=== PATIENT | male | born 1950 | race Caucasian/White ===

== ENCOUNTER 2017-08-02 07:00 | Outpatient (RCR) | payer MEDICARE, OTHER ==
[~2017-08-02 07:00] MED LIST: ASPIRIN325 MG PO; FOLIC ACID1 MG PO; GARLIC2000 MG PO; GINGER250 MG PO; LIVER-KIDNEY C1 EACH PO; LOSARTAN POTASS25 MG PO; MULTIVITAMIN PO; PEPCID20 MG; THIAMINE HCL100 MG PO
== END 2017-08-26 ==
LOC: PT 07:00
PROVIDERS: ATTEND Orthopaedic Surgery
DX: Z96.641 Presence of right artificial hip joint (principal); Z47.1 Aftercare following joint replacement surgery; M16.11 Unilateral primary osteoarthritis, right hip; M25.651 Stiffness of right hip, not elsewhere classified; M62.81 Muscle weakness (generalized)
CPT/HCPCS: 97110 ×2; G8979; G8980

== ENCOUNTER 2019-07-13 07:59 | Observation (INO) | payer MEDICARE, OTHER ==
[~2019-07-13] VITALS: Ht 175.3 cm; Wt 75.6 kg
--- OUTSIDE RECORDS SUMMARY | 2019-07-13 08:02 | XMS REPORT ---
Author Author [facility] Address Unknown Phone Unavailable Care Team Providers Care Unitizer Name Role Phone Unavailable Unavailable Payers Payer Name Policy Type Policy Number Effective Date Expiration Date Problems This patient has no known problems. Allergies, Adverse Reactions, Alerts Allergy Name Allergy Type Status Severity Reaction(s) Onset Date Inactive Date Treating Clinician Comments No Known Allergies DA Active U 2017-05-02 00:00:00 Medications This patient has no known medications.
[2019-07-13] MEDS ORDERED: ASPIRIN 81 MG CHEW TAB PO ONE (08:30)
[2019-07-13] MEDS ORDERED: ATORVASTATIN CA20 MG PO (08:35)
[2019-07-13] MEDS ORDERED: ANORO ELLIPTA1 EACH PO (08:35)
[2019-07-13] MEDS ORDERED: TADALAFIL5 MG PO (08:35)
[2019-07-13] MEDS ORDERED: OMEPRAZOLE40 MG PO (08:35)
[2019-07-13] MEDS ORDERED: ENALAPRIL MALEA20 MG PO (08:35)
[2019-07-13 08:38] LABS: BASOPHILS % 0.6 % (0.0-1.0); EOSINOPHILS # (AUTO) 0.1 (0.0-0.4); EOSINOPHILS % 1.7 % (0.0-6.0); HEMOGLOBIN 15.5 g/dL (14.0-18.0); LYMPHOCYTES # (AUTO) 1.3 (1.0-3.2); LYMPHOCYTES % 23.7 % (18.0-39.1); MEAN CORPUSCULAR HEMOGLOBIN 29.7 pg (28-32); MEAN CORPUSCULAR HGB CONC 33.7 g/dL (31-35); MEAN CORPUSCULAR VOLUME 88.1 fL (81-99); MONOCYTES # (AUTO) 0.4 (0.2-0.8); MONOCYTES % 7.4 % (4.4-11.3); NEUTROPHILS # (AUTO) 3.6 (2.1-6.9); NEUTROPHILS % 66.4 % (38.7-80.0); PLATELET COUNT 221 x10e3/uL (140-360); RED BLOOD COUNT 5.22 x10e6/uL (4.3-5.7); RED CELL DISTRIBUTION WIDTH 11.8 % (11.7-14.4)
[2019-07-13 08:48] LABS: INR 0.97; PROTHROMBIN TIME 13.4 seconds (11.9-14.5)
[2019-07-13 08:49] LABS: PARTIAL THROMBOPLASTIN TIME 27.3 seconds (23.8-35.5)
[2019-07-13 08:59] LABS: ALANINE AMINOTRANSFERASE 25 IU/L (0-55); ALBUMIN/GLOBULIN RATIO 1.7 (0.8-2.0); ALKALINE PHOSPHATASE 75 IU/L (40-150); ANION GAP 12.8 mmol/L (8-16); BLOOD UREA NITROGEN 11 mg/dL (7-26); BUN/CREATININE RATIO 9 (6-25); CALCIUM 9.8 mg/dL (8.4-10.2); CARBON DIOXIDE 28 mmol/L (22-29); CHLORIDE 102 mmol/L (98-107); CREATINE KINASE 110 IU/L (30-200); CREATININE, SERUM 1.18 mg/dL (0.72-1.25); EST GLOMERULAR FILTRATION RATE > 60 ML/MIN (60-); GLUCOSE 117 mg/dL (74-118); MAGNESIUM 1.8 MG/DL (1.3-2.1); POTASSIUM 3.8 mmol/L (3.5-5.1); SODIUM 139 mmol/L (136-145)
--- NOTE | 2019-07-13 09:04 | Diagnostic Imaging Report ---
Examination: Single AP view of the chest. COMPARISON: Report for CT angiography of the chest 03/26/2017. No images available. INDICATION: Chest pain DISCUSSION: Lungs are well-inflated and without consolidation, pleural effusion, or pneumothorax. Cardiomediastinal contour is notable for tortuosity of the thoracic aorta. Normal heart size. No overt pulmonary edema. No acute osseous abnormality. IMPRESSION: 1. No acute cardiopulmonary abnormalities. Signed by: Dr. Matthew Riggs M.D. on 07/13/2019 9:00 AM
[2019-07-13] MEDS ORDERED: ONDANSETRON HCL INJ 2MG/ML 2ML 2 MG/ML VIAL IV PRN (09:15)
[2019-07-13] MEDS: ASPIRIN 81 MG ENTERIC COATED PO SCH (09:22)
[2019-07-13] MEDS: FAMOTIDINE 20 MG/2 ML VIAL IV SCH ×2 (09:22→21:08)
[2019-07-13 09:39] LABS: BILIRUBIN,URINE NEGATIVE (NEGATIVE); CLARITY,URINE CLEAR (CLEAR); COLOR,URINE YELLOW (YELLOW); KETONES,URINE NEGATIVE (NEGATIVE); LEUKOCYTE ESTERASE ,URINE NEGATIVE (NEGATIVE); NITRITE,URINE NEGATIVE (NEGATIVE); PROTEIN,URINE DIPSTICK NEGATIVE (NEGATIVE); URINE UROBILINOGEN 0.2 mg/dL (0.2 - 1)
[2019-07-13 09:47] LABS: BACTERIA,URINE RARE /HPF; EPITHELIAL CELLS,URINE FEW /LPF; RBC,URINE 0-5 /HPF (0-5); WBC,URINE (MAN) 0-5 /HPF (0-5)
[2019-07-13 10:00] VITALS: BP 132/82
--- NOTE | 2019-07-13 10:00 | NUR ---
PATIENT ADMITTED FROM ER PER STRETCHER. ALERT AND VERBALLY RESPONSIVE. DENIED ANY PAIN AT THIS TIME. SKIN WARM AND DRY TO TOUCH, RESPIRATION EVEN AND UNLABORED, ABDOMEN SOFT AND NON DISTENDED. TELEMETRY B[address]. PATIENT ORIENTED TO SURROUNDINGS. BED IN LOWER POSITION, CALL LIGHT AT REACH, INSTRUCTED TO CALL FOR ASSISTANCE NEEDED.
[2019-07-13 11:35] VITALS: BP 117/69
[2019-07-13 14:55] LABS: CREATINE KINASE 91 IU/L (30-200)
--- NOTE | 2019-07-13 15:39 | NUR ---
PATIENT IN BED RESTING WITH NO S/S OF DISTRESS. CALL LIGHT AT REACH.
--- NOTE | 2019-07-13 15:42 | NUR ---
IN TO SEE PATIENT. DIET ADVANCED TO GI SOFT. Addendum: 07/13/19 at 1543 by Kat James RN WRONG PATIENT.
[2019-07-13 16:11] VITALS: BP 101/65
--- NOTE | 2019-07-13 19:45 | NUR ---
RECEIVED PT IN BED AOX3 .RESPIRATIONS ARE EVEN AND UNLABORED .DENIES PAIN /TELE SHOWS IST DEGREE BLOCK .CALL LIGHT WITH IN REACH CONTINUE TO MONITOR
[2019-07-13 20:00] VITALS: BP 101/60
[2019-07-13 20:11] LABS: CREATINE KINASE 81 IU/L (30-200)
[2019-07-13] MEDS ORDERED: MORPHINE SULFATE 2 MG/ML SYR 1ML IV PRN (21:15)
[2019-07-13 23:11] VITALS: BP 101/60
[2019-07-14] VITALS (7 sets, daily range): BP systolic 107–130; BP diastolic 59–82
[2019-07-14 02:32] LABS: CREATINE KINASE 78 IU/L (30-200)
[2019-07-14 05:46] LABS: BASOPHILS % 0.7 % (0.0-1.0); EOSINOPHILS # (AUTO) 0.1 (0.0-0.4); EOSINOPHILS % 2.3 % (0.0-6.0); HEMATOCRIT 44.5 % (38.2-49.6); HEMOGLOBIN 14.8 g/dL (14.0-18.0); LYMPHOCYTES # (AUTO) 1.4 (1.0-3.2); LYMPHOCYTES % 25.6 % (18.0-39.1); MEAN CORPUSCULAR HEMOGLOBIN 29.2 pg (28-32); MEAN CORPUSCULAR HGB CONC 33.3 g/dL (31-35); MEAN CORPUSCULAR VOLUME 87.8 fL (81-99); MONOCYTES # (AUTO) 0.5 (0.2-0.8); MONOCYTES % 8.4 % (4.4-11.3); NEUTROPHILS # (AUTO) 3.5 (2.1-6.9); PLATELET COUNT 185 x10e3/uL (140-360); RED BLOOD COUNT 5.07 x10e6/uL (4.3-5.7); RED CELL DISTRIBUTION WIDTH 11.9 % (11.7-14.4)
[2019-07-14 06:06] LABS: ALANINE AMINOTRANSFERASE 23 IU/L (0-55); ALBUMIN 3.5 g/dL (3.5-5.0); ALBUMIN/GLOBULIN RATIO 1.5 (0.8-2.0); ALKALINE PHOSPHATASE 66 IU/L (40-150); ANION GAP 10.1 mmol/L (8-16); BLOOD UREA NITROGEN 12 mg/dL (7-26); BUN/CREATININE RATIO 12 (6-25); CALCIUM 9.5 mg/dL (8.4-10.2); CARBON DIOXIDE 28 mmol/L (22-29); CHLORIDE 104 mmol/L (98-107); CHOL/HDL RATIO 3.4 (3.9-4.7); CHOLESTEROL 126 MD/DL (0-199); EST GLOMERULAR FILTRATION RATE > 60 ML/MIN (60-); GLUCOSE 94 mg/dL (74-118); HDL CHOLESTEROL 37 MG/DL (40-60); LDL CHOLESTEROL 74 MG/DL (60-130); POTASSIUM 4.1 mmol/L (3.5-5.1); SODIUM 138 mmol/L (136-145); TRIGLYCERIDES 76 MG/DL (0-149)
--- NOTE | 2019-07-14 06:22 | NUR ---
PT C/O CHEST PAIN CALLED DR LIMA AND GOT THE ORDER TO GIVE MORPHINE .GIVEN MORPHINE X1 .PT RESTING .PT NPO FOR STRESS TEST .CONTINUE TO MONITOR
--- NOTE | 2019-07-14 07:05 | NUR ---
BEDSIDE REPORT GIVEN TO THE ONCOMING NURSE
[2019-07-14] MEDS: FAMOTIDINE 20 MG/2 ML VIAL IV SCH (08:10)
[2019-07-14] MEDS ORDERED: REGADENOSON 0.4 MG/5 ML SYR IV ONE (08:24)
[2019-07-14] MEDS: ENALAPRIL MALEATE 10 MG TAB PO SCH (09:00)
[2019-07-14] MEDS: VILANTEROL TR PO SCH (09:00)
[2019-07-14] MEDS: UMECLIDINIUM BRM PO SCH (09:00)
[2019-07-14] MEDS: PANTOPRAZOLE SOD 40 MG TABEC PO SCH (09:00)
[2019-07-14] MEDS: Tadalafil 5 MG PO SCH (09:00)
--- NOTE | 2019-07-14 10:50 | NUR ---
patient off the unit for Stress test, stable
--- NOTE | 2019-07-14 12:30 | History and Physical ---
PRIMARY CARE PHYSICIAN: Dr. Ke Abernathy. WATERFRONT DIRECTOR: Dr. Troy Vasquez. CHIEF COMPLAINT: Chest pain. HISTORY OF PRESENT ILLNESS: The patient is a 69-year-old male, patient of Dr. Ke Abernathy. The patient came to the hospital with complaint of atypical chest pain. The patient is supposed to have a stress test later on with Dr. Vasquez. The patient is stating that the chest pain described as burning, located to the left epigastric area. There is no significant nausea or vomiting. No diaphoresis. The patient is stable. He is pending for a stress test today. PAST MEDICAL HISTORY: Hypertension, dyslipidemia, reflux, gastritis. Hiatal hernia. PAST SURGICAL HISTORY: Colonoscopy, upper endoscopy and hip surgery. Abdominal hernia repair. SOCIAL HISTORY: The patient does not smoke or use alcohol. No regular drugs. ALLERGIES: NO KNOWN ALLERGIES. HOME MEDICATIONS: List is reviewed. REVIEW OF SYSTEMS: Chest pain. No headaches. No nausea or vomiting. No radiating pain. PHYSICAL EXAMINATION: VITAL SIGNS: Temperature is 97, blood pressure 107/64, pulse rate 57, and respirations 18. GENERAL: The patient is not in acute distress. HEENT: Normocephalic and atraumatic. Pupils reactive. Anicteric. NECK: Supple grossly. PULMONARY: Clear. CARDIOVASCULAR: Regular rate and rhythm. ABDOMEN: Soft. Unremarkable. EXTREMITIES: No cyanosis or edema. NEUROLOGIC: No gross focal deficit. LABORATORY DATA: Sodium is 138, potassium 4.1, chloride 104, bicarb 28, BUN 12, creatinine 1.2, and glucose is 94. WBC is 5.6, hemoglobin 14.8, hematocrit 44.5, and platelets is 187. Chest x-ray otherwise unremarkable. IMPRESSION: Atypical chest pain. PLAN: Lexiscan stress test today. Once the stress is negative, the patient should be able to go home. He will resume his home medication. MD MACY Avendano/HENRIETTA /[id number]
--- NOTE | 2019-07-14 17:14 | NUR ---
Paged Dr Miller regarding Stress result, she stated she will call back with the result
--- NOTE | 2019-07-14 18:33 | Consultation ---
DATE OF CONSULTATION: 07/14/2019 Cardiology consultation REQUESTING PHYSICIAN: Ap Conley MD. REASON FOR CONSULTATION: Chest pain. HISTORY OF PRESENT ILLNESS: This is a 69-year-old male with history of hypertension, hyperlipidemia, who presents with complaints of chest pain. He reports he has been having chest pain for the last three or four days. He describes it as a burning sensation 4/10 in severity, lasting 45 minutes to 1 hour at a time when he lies down. Denies any shortness of breath, nausea, diaphoresis. Denies any edema, orthopnea or PND. REVIEW OF SYSTEMS: Negative except as per HPI. PAST MEDICAL HISTORY: 1. Hypertension. 2. Hyperlipidemia. PAST SURGICAL HISTORY: 1. Hernia repair. 2. Right hip replacement. 3. Toe surgery. ALLERGIES: PLEASE SEE EMR. MEDICATIONS: Please see medication list. SOCIAL HISTORY: Denies any tobacco or illicit drugs. He does drink approximately a six pack of beer a day. FAMILY HISTORY: Pertinent for father and brother with coronary artery disease as well as myocardial infarction. PHYSICAL EXAMINATION: VITAL SIGNS: Temperature 96.4 degrees, pulse is 57, respiratory rate 18, blood pressure 107/64, and oxygen saturation 98% on room air. GENERAL: Awake, alert, no acute distress. LUNGS: Clear to auscultation bilaterally. No wheezes or crackles. CARDIOVASCULAR: Normal rate, regular rhythm. No murmur. Normal S1, S2. ABDOMEN: Soft nontender. EXTREMITIES: No edema. NEUROLOGIC: Nonfocal exam. LABORATORY DATA: WBC 5.62, hemoglobin 14.8, hematocrit 44.5, platelets 185. Sodium 138, potassium 4.1, chloride 104, CO2 of 28, BUN 12, creatinine 1, LDL 74. TELEMETRY: Normal sinus rhythm. ELECTROCARDIOGRAM: EKG; normal sinus rhythm with sinus arrhythmia, T-wave abnormality, anterior ischemia. IMPRESSION: 1. Chest pain. 2. Hypertension. 3. Hyperlipidemia. 4. Abnormal EKG. RECOMMENDATIONS: The patient has ruled out for myocardial infarction with serial cardiac biomarkers. Obtain echo, nuclear stress test to evaluate for ischemia given his risk factors. Further recommendations pending test results. Thank you for this consult. We will continue to follow. Rossy Miller MD ABS/MODL /[id number]
--- NOTE | 2019-07-14 19:10 | NUR ---
Patient visited in room during nursing rounds. Patient alert and oriented x3. Ambulatory in room prn. Patient denies pain at this time. Awaiting on cardio (Dr. Miller) results from stress test. Call bruno within reach.
--- NOTE | 2019-07-14 19:15 | NUR ---
Received call from Dr. Miller. stated lexiscan stress test was negative and pt cleared from cardiac standpoint.
[2019-07-14] MEDS ORDERED: ATORVASTATIN 20 MG TAB PO SCH (21:00)
--- NOTE | 2019-07-14 21:00 | NUR ---
Informed patient that stress test result was negative. Pt wishes to go home tomorrow. Will attempt to call Dr. oCnley to notify.
--- NOTE | 2019-07-14 22:00 | NUR ---
Attempted to call Dr. Conley to report lexiscan stress test result but no answer. Awaiting on MD call back. Will pass on information to incoming dayshift RN.
--- NOTE | 2019-07-14 22:09 | Myoview Stress Test ---
DATE OF STUDY: 07/14/2019 09:09:00 Stress Test - Treadmill ONLY PROCEDURE TITLE: Rest/stress single isotope SPECT imaging pharmacologic stress and gated SPECT imaging. INDICATION: Chest pain. PROCEDURE IN DETAIL: Pharmacologic stress testing was performed with regadenoson per protocol. The heart rate was 60 beats per minute at rest and increased to 105 beats per minute during the regadenoson infusion. The rest blood pressure was 119/70 mmHg and increased to 130/77 mmHg, which is a normal response. The resting electrocardiogram demonstrated normal sinus rhythm. There were no ST-segment changes suggestive of myocardial ischemia. Myocardial perfusion imaging was performed at rest following injection of 11 mCi of tetrofosmin. At peak pharmacologic effect, the patient was at 32 mCi of tetrofosmin. Gated post-stress tomographic imaging was performed. FINDINGS: The overall quality of study is fair. Left ventricular cavity is normal size on the rest and stress studies. SPECT images demonstrate homogeneous tracer distribution throughout the myocardium. Gated SPECT imaging reveals normal myocardial thickening and wall motion. The left ventricular ejection fraction calculated to be 65%. IMPRESSION: Myocardial perfusion imaging is normal. Overall left ventricular systolic function was normal without regional wall motion abnormalities. Rossy Miller MD ABS/MODL /[id number]
[2019-07-15 00:42] VITALS: BP 121/62
[2019-07-15 05:20] VITALS: BP 128/70
[2019-07-15 07:12] VITALS: BP 164/80
[2019-07-15 08:51] VITALS: BP 164/80
[2019-07-15] MEDS: Tadalafil 5 MG PO SCH (09:00)
[2019-07-15] MEDS: UMECLIDINIUM BRM PO SCH (09:00)
[2019-07-15] MEDS: VILANTEROL TR PO SCH (09:00)
[2019-07-15] MEDS: ENALAPRIL MALEATE 10 MG TAB PO SCH (09:07)
[2019-07-15] MEDS: PANTOPRAZOLE SOD 40 MG TABEC PO SCH (09:07)
[2019-07-15] MEDS: ASPIRIN 81 MG ENTERIC COATED PO SCH (09:07)
[2019-07-15] MEDS ORDERED: MOBIC15 MG PO (10:27)
--- NOTE | 2019-07-15 11:06 | NUR ---
patient discharged home, Dr Conley and Dr Miller had rounds, prescription given, patient aware about his f/up appointments, IV canula removed with tip intact, no ss of infiltration, denies any pain, no distress noted, transported via wheelchair to [facility], he got his personnel car
--- NOTE | 2019-07-15 19:41 | Progress Note ---
DATE: 07/15/2019 SUBJECTIVE: The patient denies chest pain or shortness of breath. He complains of left neck pain. OBJECTIVE: VITAL SIGNS: Temperature 97.9 degrees, pulse 82, respiratory rate 18, blood 164/80, and oxygen saturation 100% on room air. GENERAL: Awake, alert, in no acute distress. LUNGS: Clear to auscultation bilaterally. No wheeze or crackles. CARDIOVASCULAR: Normal rate, regular rhythm. No murmur. Normal S1 and S2. ABDOMEN: Soft and nontender. EXTREMITIES: No edema. CARDIAC MEDICATIONS: 1. Enalapril 20 mg p.o. daily. 2. Aspirin 81 mg p.o. daily. 3. Atorvastatin 20 mg p.o. at bedtime. LABORATORY DATA: None today. TELEMETRY: Normal sinus rhythm. IMPRESSION: 1. Chest pain. 2. Hypertension. 3. Hyperlipidemia. 4. Abnormal EKG. RECOMMENDATIONS: The patient ruled out for myocardial infarction with serial cardiac biomarkers. Nuclear stress test without evidence of ischemia. No further cardiac evaluation is indicated at this time. Please have patient follow up with Dr. Vasquez in two weeks. Thank you for this consult. We will continue to follow. Rossy Miller MD ABS/MODL /[id number]
--- NOTE | 2019-07-16 01:52 | Discharge Summary ---
PRIMARY CARE PHYSICIAN: Ke Abernathy MD TRANSPORTATION ASSISTANT: Dr. Troy Vasquez. FINAL DIAGNOSES: 1. Atypical chest pain with negative EKG, negative cardiac enzyme and negative nuclear stress test. 2. Left-sided neck pain, most likely musculoskeletal pain. SUMMARY: The patient is a 69-year-old male with baseline hypertension, dyslipidemia. The patient came in with left-sided neck pain, chest pain. The patient was scheduled for outpatient stress test, but he was anxious; therefore, he came to the hospital. He was ruled out for any myocardial infarction and the patient subsequently had a nuclear stress test that was negative yesterday. He is concerned with his left-sided neck pain and musculoskeletal pain, most likely with palpation and range of motion. The patient will go home with Mobic 7.5 mg one 1 to 2 tablets each day as needed for pain. The patient to follow up with his family physician for management of his neck pain, most likely musculoskeletal pain on physical examination. MD MACY Avendano/HENRIETTA /[id number]
== END 2019-07-15 10:47 | disposition home or self-care (01) ==
LOC: ER 07:59 → ERHOLD 09:23 → MED/SURG3 09:55
PROVIDERS: ADMIT Internal Medicine; ATTEND Internal Medicine
DX: R07.2 Precordial pain (principal); M54.2 Cervicalgia; I10 Essential (primary) hypertension; E78.5 Hyperlipidemia, unspecified; K21.9 Gastro-esophageal reflux disease without esophagitis; Z82.49 Family history of ischemic heart disease and other diseases of the circulatory system; R94.31 Abnormal electrocardiogram [ECG] [EKG]
CPT/HCPCS: 36415 ×2; 71045; 78452; 80053 ×2; 80061; 81001; 82550 ×2; 82553 ×2; 83735; 83880; 84484 ×2; 85025 ×2; 85610; 85730; 93005; 93017; 99284; A9502; G0378 ×3; J2270; J2405; J2785; S0164

== ENCOUNTER → 2024-07-31 | Day surgery (SDC) | payer OTHER ==
[2024-07-29 10:07] LABS: BASOPHILS # (AUTO) 0.1 (0.0-0.1); BASOPHILS % 0.8 % (0.0-1.0); EOSINOPHILS # (AUTO) 0.1 (0.0-0.4); HEMATOCRIT 46.9 % (38.2-49.6); HEMOGLOBIN 15.6 g/dL (14.0-18.0); LYMPHOCYTES # (AUTO) 1.3 (1.0-3.2); LYMPHOCYTES % 20.8 % (18.0-39.1); MEAN CORPUSCULAR HEMOGLOBIN 30.2 pg (28-32); MEAN CORPUSCULAR HGB CONC 33.3 g/dL (31-35); MEAN CORPUSCULAR VOLUME 90.7 fL (81-99); MONOCYTES # (AUTO) 0.4 (0.2-0.8); MONOCYTES % 6.1 % (4.4-11.3); NEUTROPHILS # (AUTO) 4.3 (2.1-6.9); NEUTROPHILS % 70.1 % (38.7-80.0); PLATELET COUNT 200 x10e3/uL (140-360); RED BLOOD COUNT 5.17 x10e6/uL (4.3-5.7); RED CELL DISTRIBUTION WIDTH 11.9 % (11.7-14.4); WHITE BLOOD COUNT 6.11 x10e3/uL (4.8-10.8)
[2024-07-29 10:19] LABS: ANION GAP 16.3 mmol/L (8-16); CALCIUM 10.3 mg/dL (8.4-10.2); CREATININE, SERUM 1.09 mg/dL (0.72-1.25); POTASSIUM 4.3 mmol/L (3.5-5.1)
[~2024-07-31] MED LIST changes: +ANORO ELLIPTA1 EACH PO; +ATORVASTATIN CA20 MG PO; +CYCLOPENTOLATE HCL 2% OPTH SOLN 2 ML BTL OP ONE; +ENALAPRIL MALEA20 MG PO; +FENTANYL CITRATE/PF 100MCG/2 ML INJ ONE; +FINASTERIDE5 MG PO; +GABAPENTIN100 MG PO; +GATIFLOXACIN(OPTH) 5 ML LIQD ONE; +GLYCOPYRROLATE INJ 0.2 MG/ML VIAL ONE; +LACTATED RINGER'S 1,000 ML ONE; +LEVOCETIRIZINE D5 MG PO; +LIDOCAINE HCL 2% LOCAL INJ 5 ML SDV VIAL INJ ONE; +MIDAZOLAM HCL 2 MG/2 ML VIAL ONE; +MOBIC15 MG PO; +OMEPRAZOLE40 MG PO; +PHENYLEPHRINE HCL 2 ML DROPS ONE; +PROPOFOL IV EMULSION 10 MG/ML 20 ML VIAL ONE; +TADALAFIL5 MG PO
[2024-07-31 10:27] VITALS: TEMP 97.5
[2024-07-31 10:40] VITALS: BP 125/76; PULSE 72; RESP 16; O2SAT 97
== END | disposition home or self-care (01) ==
LOC: OR 07:00
PROVIDERS: ATTEND Ophthalmology
DX: H25.12 Age-related nuclear cataract, left eye (principal); I10 Essential (primary) hypertension; E78.5 Hyperlipidemia, unspecified; K21.9 Gastro-esophageal reflux disease without esophagitis; M54.9 Dorsalgia, unspecified; Z01.810 Encounter for preprocedural cardiovascular examination; Z01.812 Encounter for preprocedural laboratory examination; Z79.899 Other long term (current) drug therapy
CPT/HCPCS: 36415; 66984; 80048; 85025; 93005; J2003; J2250; J2704; J3010; J7121; V2632